=== PATIENT | female | born 1940 | race Two or more races ===

== ENCOUNTER 2019-01-17 09:47 | Emergency (ER) | payer OTHER ==
[~2019-01-17] VITALS: Ht 162.6 cm; Wt 99.8 kg
[~2019-01-17 09:47] MED LIST: CHOL20007 PO; ERGO1CAP23 PO
[2019-01-17 10:58] LABS: Basophils # (auto) 0.1 uL; Basophils % (auto) 0.8 % (0.0-2.0); Eosinophils # (auto) 0 uL; Eosinophils % (auto) 0.2 % (0.0-7.0); Hematocrit 41.2 % (36.0-46.0); Hemoglobin 13.3 g/dL (12.2-16.2); Lymphocytes # (auto) 1.9 uL; Lymphocytes % (auto) 14.7 % (10.0-50.0); Mean Corpuscular Hemoglobin 28.2 pg (28.0-32.0); Mean Corpuscular Hgb Conc. 32.3 g/dL (32.0-36.0); Mean Corpuscular Volume 87.3 fL (80.0-100.0); Monocytes # (auto) 1.4 uL; Neutrophils # (auto) 9.3 uL; Neutrophils % (auto) 73.3 % (37.0-80.0); Platelet Count (auto) 317 10^3/uL (140-450); Red Blood Cells 4.72 10^6/uL (4.0-5.20); Red Cell Distribution Width 14.9 % (11.8-14.3); White Blood Cell 12.6 10^3/uL (4.4-10.8)
[2019-01-17 11:16] LABS: Albumin 3.2 g/dL (3.4-5.0); BUN/Creatinine Ratio 17.1; Calcium 8.7 mg/dL (8.5-10.1); Potassium 3.7 mmol/L (3.5-5.1)
[2019-01-17 11:18] LABS: Bilirubin, Total 1.1 mg/dL (0.2-1.0); Total Protein 7.6 g/dL (6.4-8.2)
[2019-01-17] MEDS ORDERED: cefTRIAXone 1GM/50ML D5W 50 ML IV ONE (18:15)
[2019-01-17] MEDS ORDERED: LIDOCAINE 2% (LOCAL ANESTH.) PF 5ml SDV ONE (18:19)
[2019-01-17] MEDS ORDERED: cefTRIAXone SOD 1,000 MG VL IM ONE (18:30)
[2019-01-17 18:31] VITALS: BP 140/80
== END 2019-01-17 18:36 | disposition home or self-care (01) ==
LOC: EDBD 09:47 → ER 09:47
DX: L03.115 Cellulitis of right lower limb (principal); M85.871 Other specified disorders of bone density and structure, right ankle and foot; E44.1 Mild protein-calorie malnutrition; G25.2 Other specified forms of tremor; E78.5 Hyperlipidemia, unspecified; I10 Essential (primary) hypertension; Z88.6 Allergy status to analgesic agent; Z68.37 Body mass index [BMI] 37.0-37.9, adult
CPT/HCPCS: 36415; 73610; 73630; 80053; 85025; 93971; 96372; 99284; J0696; J2001